=== PATIENT | male | born 1995 | race Caucasian/White ===

== ENCOUNTER 2019-08-30 18:44 | Emergency (ER) | payer SELFPAY ==
[2019-08-30 18:45] VITALS: BP 138/75; PULSE 106; RESP 19; TEMP 37.1; O2SAT 99; BMI 19.3
[2019-08-30 19:09] LABS: Absolute Neutrophil Count 5.4 X10^3/uL (2.0-7.7); Basophil# 0.04 X10^3/uL; Basophil% 0.6 % (0-1); Eosinophil# 0.13 X10^3/uL; Eosinophils% 1.8 % (0-5); Hematocrit 47.9 % (40-54); Hemoglobin 16.8 g/dL (13.0-16.5); Lymphocyte % 15.2 % (19-41); Mean Corp Hgb Conc 35.1 g/dL (32-36); Mean Corpuscular Hgb 30.4 pg (27.0-32.0); Mean Corpuscular Volume 86.8 fL (80-94); Mean Platelet Vol. 8.7 fl (6.2-12.0); Monocyte# 0.52 X10^3/uL; Monocyte% 7.2 % (0-10); NRBC Flagged by Analyzer 0 % (0-5); Neutrophil # 5.44 X10^3/uL (2.7-7.7); Neutrophil % 75.1 % (47-70); Platelet Count 313 K/mm3 (150-450); RBC Distribution Width CV 11.8 % (11.6-14.6); RBC Distribution Width SD 37.4 fl (35.1-43.9); Red Blood Count 5.52 M/mm3 (4.6-6.2); White Blood Count 7.2 K/mm3 (4.4-11.0)
--- NOTE | 2019-08-30 19:20 | ED.VIS.GEN ---
History of Present Illness Chief Complaint: Nausea/Vomiting Informant: Patient Onset: Yesterday Current Severity: Mild Maximum Severity: Moderate Narrative: Patient developed nausea, vomiting, and diarrhea last evening. He states symptoms seem to be improved today but he has not been able to eat much. When he stands up he blacks out for a second before his vision comes back to normal. He has not had any syncope. He reportedly felt warm last night but did not measure a fever. His abdomen feels queasy but no focal pain. Past Medical History - Allergies and Home Meds Allergies/Adverse Reactions: Allergies No Known Allergies Allergy (Verified 08/30/19 18:46) Primary Care Physician: Veto Mera MD [Primary Care Provider] - Prior records reviewed: Yes Past Medical History: - - Reviewed Surgical History: no surgical history Smoking Status: Current every day smoker Review of Systems General: Reports: Fever, Subjective Eyes: Denies: Visual changes - bilaterally ENT: Denies: Bilateral ear pain Cardiovascular: Denies: Chest pain Respiratory: Denies: Dyspnea, Cough Gastrointestinal: Reports: Nausea, Vomiting, Diarrhea. Denies: Abdominal pain Genitourinary: Denies: Dysuria Musculoskeletal: Denies: Back pain Skin: Denies: Rash Neurological: Denies: Headache Hematologic: Denies: Easy bruising Allergy: Denies: Uticaria Physical Exam Vital Signs/Narrative: Vital Signs Temp Pulse Resp BP Pulse Ox 08/30/19 18:45 98.7 F 106 H 19 H 138/75 H 99 Inital Vital Signs reviewed: Yes General: Well nourished, Well developed Head: Normocephalic ENT: Moist mucous membranes Neck: Supple Cardiovascular: Regular rate, Regular rhythm Respiratory: No distress, CTA bilaterally Abdomen: Soft, Nontender, Hypoactive bowel sounds Extremities: Nontender Skin: Normal color, No rash Neurological: Alert, Oriented x3 Psychological: Normal affect Diagnostic/Tx/Re-eval Laboratory Results 08/30/19 08/30/19 08/30/19 18:58 18:58 20:25 WBC 7.2 RBC 5.52 Hgb 16.8 H Hct 47.9 MCV 86.8 MCH 30.4 MCHC 35.1 RDW Std Deviation 37.4 RDW Coeff of Lizzie 11.8 Plt Count 313 MPV 8.7 Immature Gran % (Auto) 0.100 Neut % (Auto) 75.1 H Lymph % (Auto) 15.2 L [place] % (Auto) 7.2 Eos % (Auto) 1.8 Baso % (Auto) 0.6 Absolute Neuts (auto) 5.4 Absolute Lymphs (auto) 1.10 Nucleated RBC % 0 Sodium 139 Potassium 4.0 Chloride 105 Carbon Dioxide 28.0 Anion Gap 6 BUN 11 Creatinine 0.79 Estim Creat Clear Calc 133.64 Est GFR (MDRD) Af Amer 152 Est GFR (MDRD) Non-Af 125 BUN/Creatinine Ratio 13.9 Glucose 108 H Calcium 8.9 Urine Color Yellow Urine Clarity Sl Cldy Urine pH 7.0 Ur Specific [place] 1.010 Urine Protein Negative Urine Glucose (UA) Normal Urine Ketones Negative Urine Occult Blood Negative Urine Nitrite Negative Urine Bilirubin Negative Urine Urobilinogen Normal Ur Leukocyte Esterase Negative Urine RBC 0 SEEN Urine WBC 0 SEEN Ur Squamous Epith Cells 0-5 SEEN Urine Bacteria 0 SEEN Urine Mucus 0 SEEN - Medical Decision Making Patient was given a liter IV fluids and Zofran. On repeat evaluation he feels improved. Will be given Zofran for home. ED Disposition - Plan for ED Patient: Disposition: Home or Assisted Living Diagnosis: Gastroenteritis Instructions: VOMITING AND DIARRHEA, Nonspecific (Adult) Prescriptions: Ondansetron [Zofran Odt] 4 mg PO Q8H PRN PRN #10 tablet PRN Reason: Nausea Referrals: Veto Mera MD [Primary Care Provider] - 3-5 Days if not improving
[2019-08-30 19:24] LABS: Anion Gap 6 (5-15); BUN 11 mg/dL (7-18); BUN/Creat Ratio 13.9 RATIO (10-20); Calcium,Total 8.9 mg/dL (8.5-10.1); Chloride 105 mmol/L (98-107); Creatinine, Serum 0.79 mg/dL (0.70-1.30); EST Glomerular Filtration Rate 125 mL/min (>60); Est Glom Filt Rate - Afr Amer 152 mL/min (>60); Estimated Creatinine Clearance 133.64 ml/min; Glucose 108 mg/dL (74-106); Sodium Level 139 mmol/L (136-145)
[2019-08-30] MEDS: Ondansetron 4 MG/2 ML Vial IV (19:35)
[2019-08-30] MEDS: 0.9% Normal Saline 1,000 ML 1000 ML IV (19:35)
[2019-08-30 20:29] LABS: Bacteria 0 SEEN /hpf (None Seen); Mucous, Urine 0 SEEN /hpf (<or=2+); Red Blood Cells-Urine 0 SEEN /hpf (0-5); White Blood Cells 0 SEEN /hpf (0-5)
[2019-08-30 20:47] LABS: Color, Urine Yellow (Yellow); Glucose, Dipstick Normal (Normal); Ketone-Dipstick Negative (Negative); Leukocyte Esterase-Dipstick Negative /ul (Negative); Nitrite-Dipstick Negative (Negative); Occult Blood-Urine Negative /ul (Negative); Protein-Dipstick Negative (Negative); Urine Bilirubin Dipstick Negative (Negative); Urine Clarity Sl Cldy (Clear); Urine Urobilinogen Normal (Normal)
[2019-08-30 20:48] VITALS: RESP 17
[2019-08-30 20:53] LABS: Squamous Epithelial Cells - UA 0-5 SEEN /hpf (0-5)
[2019-08-30 21:26] VITALS: BP 106/78; PULSE 84; RESP 17; O2SAT 98
== END 2019-08-30 21:27 | disposition home or self-care (01) ==
PROVIDERS: Emergency Provider Emergency Medicine; Family Provider Internal Medicine; PCP Internal Medicine
DX: K52.9 Noninfective gastroenteritis and colitis, unspecified (principal); F17.200 Nicotine dependence, unspecified, uncomplicated
CPT/HCPCS: 80048; 81001; 85025; 96361; 96374; 99284; J7030; A4216; J2405

== ENCOUNTER 2022-09-11 15:39 | Emergency (ER) | payer SELFPAY ==
[2022-09-11 15:40] VITALS: BP 139/93; PULSE 74; RESP 18; TEMP 36.4; O2SAT 98; BMI 20.7
--- NOTE | 2022-09-11 15:57 | EDS_ITS ---
HPI History of Present Illness Chief Complaint: Male Pain/Injury Informant: patient Narrative Narrative: Asymptomatic patient had intercourse with a female who subsequently tested positive for chlamydia. He has no discharge, testicular pain or swelling, abdominal discomfort, dysuria, fevers or chills. No known history of STIs in himself. PFSH PFSH Medical History no medical history no medical history Home Medications ondansetron 4 mg disintegrating tablet 4 mg PO Q8H PRN PRN Nausea #10 tabs 08/30/19 [Rx Last Taken Unknown] Allergy/AdvReac Type Severity Reaction Status Date / Time No Known Allergies Allergy Verified 09/11/22 15:42 Surgical History no surgical history no surgical history Social History Smoking Status: Current every day smoker ROS ROS ED Constitutional Constitutional ED: Denies chills or fever(s) Eyes Eyes: Denies change in vision or diplopia ENT ENT ED: Denies rhinorrhea or sore throat Cardiovascular Cardiovascular: Denies chest pain or palpitations Respiratory/Chest Respiratory/Chest: Denies cough or dyspnea Gastrointestinal Gastrointestinal: Denies abdominal pain, diarrhea, nausea or vomiting Genitourinary Genitourinary ED: Denies dysuria or hematuria Musculoskeletal Musculoskeletal: Denies back pain or neck pain Integumentary Denies abscess or rash Neurologic Neurologic: Denies headache(s), paresthesias or weakness Psychiatric Psychiatric: Denies anxiety or suicidal thoughts EXAM Physical Exam Const Vital Signs: 09/11/22 15:40 Temperature 97.5 F L Temperature Source Oral Pulse Rate 74 Respiratory Rate 18 Blood Pressure 139/93 H Blood Pressure Mean 108 Pulse Ox 98 Oxygen Delivery Method Room Air Positive well nourished and well developed General Appearance ED: well developed and NAD HEENT Reports moist mucous membranes normocephalic and atraumatic Eyes PERRL and EOMs intact bilaterally Neck full ROM and supple Resp normal respiratory effort Extremity normal to inspection General Extremety ED: Negative for edema General Extremity: Negative for edema Neuro oriented x3, CN's II-XII intact bilaterally and no sensory deficits noted Sensorium / Orientation: awake and alert Motor Exam: strength 5/5 throughout MDM MDM MDM Narrative Medical decision making narrative: Patient was given azithromycin 1 g, we sent urine for GC and chlamydia and he was given appropriate discharge instructions. I offered treatment empirically for gonorrhea, he declines that and understands that if he test positive he may need to return for an injection. Discharge Plan Triage Chief Complaint: Male Pain/Injury ED Provider: Thomas Blakely Dx/Rx/DC Orders Clinical Impression: Exposure to chlamydia Instructions: STI, Chlamydia Prescriptions: No Action ondansetron 4 MG tablet 4 mg PO Q8H PRN PRN (Reason: Nausea) Qty: 10 0RF Primary Care Provider: Veto Mera Referrals: Veto Mera MD [Primary Care Provider] - As Needed Activity Restrictions/Additional Instructions: Your gonorrhea and Chlamydia testing will take a couple days to come back you should get a notification if one of them is positive but not necessarily if one of them is negative. You were treated for chlamydia but not gonorrhea. Follow- up with your doctor if you want to be tested for more STIs such as HIV or syphilis. We do not do asymptomatic screening in the emergency room except in certain clinical situations such as rape. Disposition Disposition: Home, Self Care
[2022-09-11] MEDS: Azithromycin 250 MG Tablet 1000 MG PO (16:05)
[2022-09-11 18:11] LABS: Chlamydia Trachomatis by PCR Negative (Negative); Neisserai gonorrhoeae by PCR Negative (Negative); Probe Check PASS; Sample Adequacy Control PASS; Specimen Processing Control PASS
== END 2022-09-11 16:07 | disposition home or self-care (01) ==
PROVIDERS: Emergency Provider Emergency Medicine; PCP Internal Medicine; Visit Provider Emergency Medicine
DX: Z20.2 Contact with and (suspected) exposure to infections with a predominantly sexual mode of transmission (principal); F17.200 Nicotine dependence, unspecified, uncomplicated
CPT/HCPCS: 87491; 87591; 99283

== ENCOUNTER 2023-10-09 20:33 | Emergency (ER) | payer SELFPAY ==
[2023-10-09 20:34] VITALS: BP 131/63; PULSE 75; RESP 16; TEMP 36.6; O2SAT 100; BMI 20.2
--- NOTE | 2023-10-09 20:53 | EKG12_ITS ---
Test Reason : Blood Pressure : / mmHG Vent. Rate : 067 BPM Atrial Rate : 067 BPM P-R Int : 148 ms QRS Dur : 098 ms QT Int : 358 ms P-R-T Axes : 080 072 065 degrees QTc Int : 378 ms Normal sinus rhythm with sinus arrhythmia Normal ECG Confirmed by BATSHEVA HAGAN, ERMELINDA ([id number]), newspaper or periodical editor VALERIE MELVIN ([id number]) on 10/13/2023 11:20:22 A M Referred By: Confirmed By:GEORGIA HERMAN MD
--- NOTE | 2023-10-09 20:54 | EDS_ITS ---
HPI History of Present Illness Chief Complaint: Chest Other Informant: patient Narrative Narrative: Patient presents with epigastric and lower chest pain. Patient states that over the last couple days every time he eats or drinks thumb thing he gets a discomfort in his lower chest and epigastric area. It is a little bit burning. He also feels like it is just hurts to swallow. If he does not swallow food or drink he is okay. He does not have pain at any other time with exertion or activity. He does note that when he gets up in the morning which it ends up being about 330 or 4 in the morning because of his job, he has the discomfort even with not eating. When he is up moving around it goes away. He denies a history of GERD. He also denies any family or personal history of heart disease or PE. No recent travel surgery immobilization. He is a smoker but he has no diabetes blood pressure high cholesterol. He has had no trauma recently. PFSH PFSH Medical History no medical history Home Medications ondansetron 4 mg disintegrating tablet 4 mg PO Q8H PRN PRN Nausea #10 tabs 08/30/19 [Rx Last Taken Unknown] omeprazole 20 mg capsule,delayed release 20 mg PO DAILY #30 CAPSULES 10/09/23 [Rx Last Taken Unknown] Allergy/AdvReac Type Severity Reaction Status Date / Time No Known Allergies Allergy Verified 10/09/23 20:34 Social History Smoking Status: Current every day smoker tobacco type: cigarettes ROS ROS ED ROS Narrative A complete review of systems was performed and is negative except as documented in the history of present illness. Some specific details below. Constitutional: No recent fevers or chills. No malaise. No myalgias EYE: No color change ENT: See history of present illness. His throat is not sore though. Occasionally he does get a sour acid taste in his throat but not all the time. CV: See history of present illness. Respiratory: No cough or dyspnea at any time. GI: No abdominal pain. No nausea vomiting. He states his stools been a little softer recently but no black or blood. : No frequency dysuria or hematuria. Musculoskeletal: No recent trauma. No pains. No swelling. Skin: No rash. Nondiaphoretic. Neuro: No weakness or numbness. Endocrine: No polyuria or polydipsia. EXAM Physical Exam Narrative Exam Narrative: CONSTITUTIONAL: Patient is nontoxic in appearance. The patient looks comfortable. Work of breathing looks normal. HEENT: No notable trauma. Mucous membranes moist. No sinus tenderness. No indication of pain with swallowing. No exudate. No enlarged tonsils. No erythema. No mass. Voice is normal. EYES: No conjunctival injection. No proptosis. NECK:No JVD. No stridor. CARDIOVASCULAR: Regular rate. Regular rhythm. No notable murmur. No JVD. RESPIRATORY: No respiratory distress. Breathing is unlabored. No wheezes. No rhonchi. No rales. No pain with a deep breath. No chest wall tenderness. He does have some mild pectus excavatum. GASTROINTESTINAL: Not distended. Bowel sounds are normal. No tenderness. No guarding. No rebound. No palpable mass. No bruit is heard. GENITOURINARY: No tenderness over the bladder. No CVA tenderness. MUSCULOSKELETAL: Atraumatic. No peripheral edema. No cord. No tenderness along the deep venous system. No asymmetry. No distended veins. NEUROLOGICAL: Patient is alert and appropriate. SKIN: No noted rashes. No diaphoresis. No pallor. PSYCHIATRIC: Patient is calm. Mood is appropriate. Const Vital Signs: 10/09/23 20:34 10/09/23 20:49 Temperature 97.8 F Temperature Source Temporal Pulse Rate 75 Respiratory Rate 16 Respiratory Effort Normal Blood Pressure 131/63 H Blood Pressure Mean 85 Pulse Ox 100 MDM MDM MDM Narrative Medical decision making narrative: My independent interpretation of the patient's two-view chest x-ray shows no acute process. He does have mild pectus excavatum which is notable on exam. But no infiltrate. No cardiomegaly. Mediastinum looks normal. No sign of pneumothorax. Final reading is pending. Talked with the patient again. I think his symptoms and exam and overall risk factor profile fit with GERD is the most likely cause of his symptoms. I will get him on a PPI. I see no indication that this is due to coronary artery disease. I do not think further blood work or CT scan imaging would be appropriate. EKG Initial EKG: Comments: My independent interpretation of the patient's EKG shows a sinus rhythm with slight sinus arrhythmia. No ventricular ectopy. No acute ST elevation or depression. FL interval, QRS duration and QTc are all normal. Discharge Plan Triage Chief Complaint: Chest Other ED Provider: Marcellus Ritter Dx/Rx/DC Orders Clinical Impression: Chest pain due to GERD, Pectus excavatum Instructions: ED GERD (Adult) Prescriptions: New omeprazole [omeprazole] 20 mg capsule,delayed release(DR/EC) 20 mg PO DAILY Qty: 30 0RF No Action ondansetron 4 MG tablet 4 mg PO Q8H PRN PRN (Reason: Nausea) Qty: 10 0RF Primary Care Provider: Care Physician,No Primary Referrals: Veto Mera MD [Med Staff - [employer] Maintainer] - 10-14 Days if not better Disposition Disposition: Home, Self Care
--- NOTE | 2023-10-09 21:00 | RAD_ITS ---
INDICATION: CP EXAMINATION/TECHNIQUE: X-RAY - XR Chest 2 Views COMPARISON: 04/15/2014 chest radiograph. Findings: Frontal and lateral views of the chest. LUNG PARENCHYMA: No acute focal airspace disease or mass lesion. PLEURA: No pleural effusion. No pneumothorax. HEART/GREAT VESSELS: Cardiomediastinal silhouette is unremarkable. BONES: Osseous structures are unremarkable for age. RAD/Chest PA and Lateral IMPRESSION: Chest with no acute disease. Electronically Signed: Dmitry Dejesus MD at 21:39 EST ,
[2023-10-09] MEDS: Pantoprazole Sodium 40 MG Tablet PO (21:31)
== END 2023-10-09 21:34 | disposition home or self-care (01) ==
PROVIDERS: Emergency Provider Emergency Medicine; Visit Provider Emergency Medicine
DX: K21.9 Gastro-esophageal reflux disease without esophagitis (principal); R07.9 Chest pain, unspecified; Q67.6 Pectus excavatum; F17.210 Nicotine dependence, cigarettes, uncomplicated
CPT/HCPCS: 71046; 93005; 99282

== ENCOUNTER 2023-10-12 21:07 | Emergency (ER) | payer SELFPAY ==
[2023-10-12 21:08] VITALS: BP 138/80; PULSE 85; RESP 16; TEMP 36.4; O2SAT 98; BMI 20.5
--- NOTE | 2023-10-12 21:44 | RAD_ITS ---
STUDY: X-RAY - LEFT ELBOW REASON FOR EXAM: Male, 28 years old. pain TECHNIQUE: 3 view(s) of the elbow. COMPARISON: None. FINDINGS: Normal visualized humerus, radius and ulna. Normal radiocapitellar and ulnotrochlear articulations. The soft tissue structures are unremarkable. RAD/Elbow min 3 Views IMPRESSION: Normal x-ray examination of the elbow. Electronically Signed: Milton Terrazas MD at 22:05 EST ,
--- NOTE | 2023-10-12 23:06 | EX.ED.UPPERE ---
HPI History of Present Illness HPI Narrative: Patient presents with left elbow. And forearm pain that began today. Patient states he was moving some furniture yesterday and woke up with pain in his left elbow and forearm today. Patient describes it as sharp and tightness. Patient states it is worse with extension of his elbow and with making a fist. Patient states it is better with rest. Patient denies any paresthesias or weakness. Patient denies any trauma or direct injury. Patient denies any other injuries. Chief Complaint: Upper Extremity Injury Informant: patient Onset/Context/Timing Onset: Today Context: Sudden Onset Timing: Continuous Quality of Pain: Sharp and - (Tightness) Location: Left elbow and forearm Worsened by: Extension of elbow and making a fist Relieved by: Rest Associated Symptoms Associated Symptoms: Negative for Parasthesia, Weakness or Loss of Funtion PFSH PFSH no medical history Home Medications NK 10/12/23 [History Last Taken Unknown] Allergy/AdvReac Type Severity Reaction Status Date / Time No Known Allergies Allergy Verified 10/09/23 20:34 no surgical history Social History Smoking Status: Current every day smoker tobacco type: cigarettes ROS ROS ED Constitutional Constitutional ED: Denies chills or fever(s) Eyes Eyes: Denies blurry vision or change in vision ENT ENT ED: Denies rhinorrhea or sore throat Cardiovascular Cardiovascular: Denies chest pain or palpitations Respiratory/Chest Respiratory/Chest: Denies cough or dyspnea Gastrointestinal Gastrointestinal: Denies nausea or vomiting Genitourinary Genitourinary ED: Denies dysuria or hematuria Musculoskeletal Musculoskeletal: Denies back pain or neck pain Integumentary Denies abscess or rash Neurologic Neurologic: Denies headache(s) or weakness Allergic/Immunologic Allergic/Immunologic ED: Denies mouth swelling or urticaria EXAM Physical Exam Const Vital Signs: 10/12/23 21:08 Temperature 97.6 F L Temperature Source Temporal Pulse Rate 85 Respiratory Rate 16 Blood Pressure 138/80 H Blood Pressure Mean 99 Pulse Ox 98 Oxygen Delivery Method Room Air Positive well nourished and well developed General Appearance ED: well developed and NAD HEENT Reports moist mucous membranes Neck full ROM and supple Extremity Extremity Narrative: There is tenderness to palpation over the medial and posterior aspects of the left elbow and left forearm. There is some mild edema. There is no ecchymosis. There is no bony crepitance or step-off. There is tenderness over the medial epicondyle of the left elbow. Range of motion was slightly limited in flexion and extension of the elbow secondary to pain. Radial pulses are equal bilaterally. Strength is 5/5 in the radial, median, and ulnar areas. Sensation was intact to light touch in the radial, median, and ulnar areas. Neuro oriented x3, CN's II-XII intact bilaterally, moves all extremities, no focal motor deficits and no sensory deficits noted Sensorium / Orientation: alert Motor Exam: strength 5/5 throughout MDM MDM MDM Narrative Medical decision making narrative: Differential diagnosis includes fracture, contusion, and muscle strain. X-rays of the left elbow will be obtained to assess for fracture and effusion. Radiography Diagnostic Testing: Clinical Impression(s) from Imaging Studies Elbow X-Ray 10/12/23 21:44 IMPRESSION: Normal x-ray examination of the elbow. Electronically Signed: Milton Terrazas MD at 22:05 [facility] , X-rays of the left elbow were obtained. There are 3 views. On my independent interpretation, there is no acute fracture noted. There is no joint effusion noted. There is no dislocation noted. Radiologist also interpreted the x-rays and agrees. Treatment and Re-Evaluation Narrative: Patient was advised of his findings. Patient was instructed to ice and elevate the left elbow. Patient was given a prescription for Naprosyn. Patient was instructed to follow-up with his primary care physician in 5 to 7 days. Patient was given restrictions for work. Patient understood and was agreeable with the plan. All questions were answered. Discharge Plan Triage Chief Complaint: Upper Extremity Injury ED Provider: Mikel Grace Dx/Rx/DC Orders Clinical Impression: Medial epicondylitis of left elbow Instructions: ED Tennis Elbow Prescriptions: No Action NK Stand Alone Forms: Work Status Form Primary Care Provider: Care Physician,No Primary Referrals: Care Physician,No Primary [Primary Care Provider] - Disposition Disposition: Home, Self Care
[2023-10-12] MEDS: Naproxen 500 MG Tablet PO (23:32)
== END 2023-10-12 23:33 | disposition home or self-care (01) ==
LOC: ED 23:23
PROVIDERS: Emergency Provider Emergency Medicine; Referring Provider Emergency Medicine; Visit Provider Emergency Medicine
DX: M77.02 Medial epicondylitis, left elbow (principal); F17.210 Nicotine dependence, cigarettes, uncomplicated
CPT/HCPCS: 73080; 99282

== ENCOUNTER 2023-10-13 20:40 | Emergency (ER) | payer SELFPAY ==
[2023-10-13 20:40] VITALS: PULSE 86; RESP 18; TEMP 36.4; O2SAT 100; BMI 20.2
--- NOTE | 2023-10-13 21:16 | EX.ED.UPPERE ---
HPI History of Present Illness Chief Complaint: Upper Extremity Injury Informant: patient Narrative Narrative: Is here because he needs a note for work. He was seen here yesterday for left elbow pain. He is left-hand dominant. He had been moving a lot of furniture. And now when he tries to pull something his elbow hurts. I reviewed the report from yesterday. I reviewed the x-rays which are negative for fracture. Patient has epicondylitis. He has been primarily medial pain but he does have some lateral. No numbness tingling weakness. He was unable to fill his Naprosyn for the day because of the time that he was seen. PFSH PFS Home Medications naproxen 500 mg tablet 500 mg PO BID PRN #20 tabs 10/12/23 [Rx Last Taken Unknown] Allergy/AdvReac Type Severity Reaction Status Date / Time No Known Allergies Allergy Verified 10/13/23 20:40 Social History Smoking Status: Current every day smoker tobacco type: cigarettes ROS ROS ED Constitutional Constitutional ED: Denies fever(s) Gastrointestinal Gastrointestinal: Denies nausea or vomiting Musculoskeletal Musculoskeletal: Reports other Details: See history of present illness Integumentary Denies abscess, Abrasions or rash Neurologic Neurologic: Denies paresthesias or weakness Hematologic/Lymphatic Hematologic/Lymphatic: Denies easy bleeding or easy bruising Allergic/Immunologic Allergic/Immunologic ED: Denies urticaria EXAM Physical Exam Narrative Exam Narrative: Neuro: Patient awake alert no acute distress. HEENT shows no trauma Cardiorespiratory shows easy unlabored breathing normal pulse and normal saturations under percent on room air showing no hypoxia. Extremities he does have both medial and lateral epicondylar tenderness. When I have him grab with his hand and pull toward him he gets some discomfort. But there is no swelling. There is no erythema. No warmth. He has good range of motion. No distal changes. Distal pulses are intact. Sensation is intact. Const Vital Signs: 10/13/23 20:40 Temperature 97.5 F L Temperature Source Temporal Pulse Rate 86 Respiratory Rate 18 Pulse Ox 100 Oxygen Delivery Method Room Air MDM MDM MDM Narrative Medical decision making narrative: Already had x-rays and meds yesterday. I will write him a note for couple days. We talked about rest ice and letting this heal. Discharge Plan Triage Chief Complaint: Upper Extremity Injury ED Provider: Marcellus Ritter Dx/Rx/DC Orders Clinical Impression: Medial epicondylitis of left elbow Instructions: Understanding Medial Epicondylitis Prescriptions: No Action naproxen 500 mg tablet 500 mg PO BID PRN Qty: 20 0RF Stand Alone Forms: ED Work / School Excuse Primary Care Provider: Care Physician,No Primary Referrals: Care Physician,No Primary [Primary Care Provider] - Activity Restrictions/Additional Instructions: Up as directed prior. Disposition Disposition: Home, Self Care
[2023-10-13 21:48] VITALS: BP 122/74; PULSE 81; RESP 16; O2SAT 97
== END 2023-10-13 21:49 | disposition home or self-care (01) ==
LOC: ED 21:31
PROVIDERS: Emergency Provider Emergency Medicine; Visit Provider Emergency Medicine
DX: M77.02 Medial epicondylitis, left elbow (principal); F17.210 Nicotine dependence, cigarettes, uncomplicated
CPT/HCPCS: 99282

== ENCOUNTER 2023-12-14 15:22 | Emergency (ER) | payer SELFPAY ==
[2023-12-14 15:23] VITALS: BP 104/67; PULSE 86; RESP 18; TEMP 36.5; O2SAT 97
[2023-12-14 15:57] VITALS: BMI 19.3
--- NOTE | 2023-12-14 15:58 | EDS_ITS ---
HPI HPI - Fall History of Present Illness Chief Complaint: Fall PFSH PFS Medical History Smoker Home Medications NK 12/14/23 [History Last Taken Unknown] Allergy/AdvReac Type Severity Reaction Status Date / Time No Known Allergies Allergy Verified 12/14/23 15:23 Social History Smoking Status: Former smoker EXAM Physical Exam Const Vital Signs: 12/14/23 15:23 12/14/23 15:57 Temperature 97.7 F L Temperature Source Temporal Pulse Rate 86 Respiratory Rate 18 Respiratory Effort Normal Respiratory Depth Normal Respiratory Pattern Normal Blood Pressure 104/67 Blood Pressure Mean 79 Pulse Ox 97 Oxygen Delivery Method Room Air Room Air MDM MDM MDM Narrative Medical decision making narrative: HISTORY OF PRESENT ILLNESS: 28-year-old male presents after mechanical fall. States he slipped down approximately 11 stairs. He notes injury to his left shoulder and right ankle/foot. Denies history of surgery to either of these extremities. Denies head trauma or loss of consciousness. NO vomiting or focal deficits. Denies drug or EtOH use in general and specifically today. Denies pain anywhere else. Does note a cough and recent fever but denies any shortness of breath or chest pain REVIEW OF SYSTEMS: Pertinent positives: Left shoulder pain, right ankle pain, right foot pain Pertinent negatives: Head trauma, loss of consciousness, focal weakness PHYSICAL EXAM: Nursing triage notes reviewed, Vital signs reviewed Primary Survey Airway: Intact Breathing: Bilateral breath sounds Circulation: Palpable bilateral femorals, Palpable bilateral radial, Palpable bilateral DP and Palpable bilateral PT Disability / Spine precautions GCS Score: Eye Openin Verbal Response: 5 Motor Response: 6 Secondary Survey Constitutional: Please see MDM Head: Atraumatic, Midface stable, NO jaw malocclusion, No Cephalohematoma, and No Lacerations noted Eye: Pupils equal round and reactive to light, Extraocular muscles intact and No periorbital ecchymosis or stepoff, no evidence of entrapment ENT: Oropharynx clear, no lacerations, no hemotympanum, no raccoon eyes or bonilla sign Cervical spine / Neck: No cervical spine bony tenderness, crepitance, or stepoff deformity Trachea midline Lungs: Clear to auscultation, No asymmetric rise and No crepitus, no flail chest Cardiac: Regular rate and rhythm and No murmurs Abdomen: Soft, Nontender and No rebound Pelvis: Pelvis stable to compression : No evidence of genital injury Back: No midline bony tenderness to thoracic/lumbar/sacral spines Neuro: At baseline, intact strength and sensation in bilateral upper and lower extremities. 2+ patellar reflexes bilaterally. Intact sensation L1-S1 dermatomal distributions. Intact 5/5 strength in hip flexion (T12-L3). Knee extension (L2-L4). Ankle dorsiflexion (L4-L5). Ankle plantar flexion (S1). Great toe extension (L5). 2+ patellar and Achilles DTRs. Intact 5/5 strength with ok sign (median), intact finger abduction (ulnar) intact wrist extension (radial n). Intact sensation in the radial, ulnar, and median nerve distributions. Extremities: NO gross Deformities, TTP over left shoulder, TTP over right foot and ankle. No obvious open fractures. Compartments are soft Psych: Normal affect Nursing triage notes reviewed, Vital signs reviewed MEDICAL DECISION MAKING: Chief Complaint: Ankle pain, shoulder pain External records reviewed: No recent advanced imaging of the involved extremities Factors affecting care: none Social determinants of health: none History obtained from others: none Consults: none [facility] Narrative: Patient was hemodynamically stable, afebrile, nontoxic-appearing. Exam with TTP over left shoulder and right ankle and foot I considered the following differential diagnosis: Left shoulder injury, right ankle injury, obtain images to rule out bony injury. ALL IMAGES (IF OBTAINED) HAVE BEEN PERSONALLY REVIEWED AND INTERPRETED BY MYSELF. X-ray of the right foot, right ankle, left shoulder read reviewed myself. All images show no evidence of obvious bony abnormality. The synthesis of the patient's history, physical exam and images suggest no acute life-threatening etiology. Likely some from her ankle contusion shoulder contusion. Gave RICE instructions. Give child ibuprofen instructions. Discharge patient stable condition The patient and/or family, caregivers express understanding. The patient and/or family, caregivers agrees with the plan. Shared decision making: I will have a discussion with the patient and or visitors regarding risk/benefits of further testing or admission. They will be made aware of of the risk/benefits inherent in this decision they will be given the opportunity to voice understanding. Total critical care time today provided was at least 0 minutes. This excludes separately billable procedures. Critical care time (if documented) is secondary to the patient having high probability of clinically significant/life threatening deterioration in the patient's condition which required my urgent intervention. Impression: 1. Ankle contusion 2. Shoulder contusion Dispo: Discharge home This note was generated with [employer] dictation software. It may contain incorrect words, spelling, and punctuation that were not noted in review of the chart prior to signing. Radiography Diagnostic Testing: Clinical Impression(s) from Imaging Studies Ankle X-Ray 12/14/23 16:00 IMPRESSION: Normal x-ray examination of the ankle. Electronically Signed: Milton Terrazas MD at 16:48 EST Reading Location ID and State: [id number] / Contactual Tel , Service support , Foot X-Ray 12/14/23 16:00 IMPRESSION: Normal x-ray examination of the foot. Electronically Signed: Milton Terrazas MD at 16:47 EST Reading Location ID and State: [id number] / Contactual Tel , Service support , Shoulder X-Ray 12/14/23 16:05 IMPRESSION: Normal x-ray examination of the shoulder. Electronically Signed: Milton Terrazas MD at 16:45 EST Reading Location ID and State: [id number] / Contactual Tel , Service support , Discharge Plan Triage Chief Complaint: Fall ED Provider: Parker Barron Dx/Rx/DC Orders Instructions: Bone Contusion, ED RICE Prescriptions: No Action NK Primary Care Provider: Care Physician,No Primary Referrals: Estrella Dupree MD [Med Staff - [employer]] - Activity Restrictions/Additional Instructions: Thank you for trusting us with your care today! Please take Tylenol (2 pills, 650 mg), ibuprofen (2 pills, 400 mg) every 6 hours as needed for pain and fever control. Please return to the emergency department if your symptoms change or worsen. Please follow with your primary care physician for further outpatient evaluation and management. Disposition Disposition: Home, Self Care
--- NOTE | 2023-12-14 16:00 | RAD_ITS ---
STUDY: X-RAY - RIGHT ANKLE REASON FOR EXAM: Male, 28 years old. pain TECHNIQUE: 3 view(s) of the ankle. COMPARISON: None. FINDINGS: Normal visualized distal tibia and fibula. Normal medial and lateral malleoli. Normal tibiotalar articulation and ankle mortise. Normal visualized talus and calcaneus. The visualized subtalar, talonavicular, calcaneocuboid and tarsal articulations are normal. The soft tissue structures are unremarkable. RAD/Ankle min 3 Views IMPRESSION: Normal x-ray examination of the ankle. Electronically Signed: Milton Terrazas MD at 16:48 EST ,
--- NOTE | 2023-12-14 16:00 | RAD_ITS ---
STUDY: X-RAY - RIGHT FOOT CLINICAL: Male, 28 years old. pain TECHNIQUE: 3 view(s) of the foot. COMPARISON: None. FINDINGS: Normal talus, calcaneus, and tarsal bones. Normal visualized subtalar, talonavicular, calcaneocuboid, tarsal and tarsometatarsal articulations. Normal metatarsi. Normal metatarsophalangeal joint of the great toe. Normal tibial and fibular sesamoid bones. Normal interphalangeal joint of the great toe. Normal phalanges of the great toe. Normal second through fifth metatarsophalangeal joints. Normal interphalangeal joints and phalanges of the lesser toes. The soft tissue structures are unremarkable. RAD/Foot min 3 Views IMPRESSION: Normal x-ray examination of the foot. Electronically Signed: Milton Terrazas MD at 16:47 EST ,
--- NOTE | 2023-12-14 16:05 | RAD_ITS ---
STUDY: X-RAY - LEFT SHOULDER REASON FOR EXAM: Male, 28 years old. shoulder pain TECHNIQUE: 4 view(s) of the shoulder. COMPARISON: None. FINDINGS: Normal glenohumeral articulation. Normal acromioclavicular joint. Normal acromion. Normal humeral head and visualized proximal humerus. The soft tissue structures are unremarkable. Normal visualized pulmonary apex. RAD/Shoulder min 2 Views IMPRESSION: Normal x-ray examination of the shoulder. Electronically Signed: Milton Terrazas MD at 16:45 EST ,
[2023-12-14] MEDS: Ibuprofen 200 MG Tablet 400 MG PO (16:11)
--- OUTSIDE RECORDS SUMMARY | 2023-12-14 16:38 | XMS RPT_ITS | CCD ---
Author Name Unknown Address [address] [place] [address] Organization [facility] Results Test Name Value Interpretation Reference Range Facil ity Summary Purpose Family History No Family History Records Found Advance Directives No Advanced Directives Records Found Additional Source Comments (unrecognized sect ion and content) No Status Records Found INFORMATION SOURCE (unrecogn ized section and content) FOR RECORDS PERTAINING TO PATIENTS WHO ARE OR HAVE BEEN ENROLLED IN A CHEMICAL DEPENDENCY/SUBSTANCEABUSE PROGRAM, SOME INFORMATION MAY BE OMITTED. This clinical summary was aggregated from multiple sources. Caution should be exercised in using it in the provision of clinical care. This summary normalizes information from multiple sources, and as a consequence, information in this document may materially change the coding, format and clinical context of patient data. In addition, data may be omitted in some cases. CLINICAL DECISIONS SHOULD BE BASED ON THE PRIMARY CLINICAL RECORDS. [employer] provides no warranty or guarantee of the accuracy or completeness of information in this document.
[2023-12-14 17:25] VITALS: BP 102/72; PULSE 73; RESP 16; TEMP 36.3; O2SAT 97
== END 2023-12-14 17:26 | disposition home or self-care (01) ==
PROVIDERS: Emergency Provider Emergency Medicine; Visit Provider Emergency Medicine
DX: S90.01XA Contusion of right ankle, initial encounter (principal); R50.9 Fever, unspecified; Z87.891 Personal history of nicotine dependence; S40.012A Contusion of left shoulder, initial encounter; W10.9XXA Fall (on) (from) unspecified stairs and steps, initial encounter
CPT/HCPCS: 73030; 73610; 73630; 99282

== ENCOUNTER 2023-12-15 03:32 | Emergency (ER) | payer MEDICAID, SELFPAY ==
[2023-12-15 03:32] VITALS: BP 107/71; PULSE 91; RESP 19; TEMP 36.7; O2SAT 95
--- NOTE | 2023-12-15 04:14 | ED.VIS.DYS ---
HPI History of Present Illness Chief Complaint: Shortness of Breath Informant: patient Onset/Context/Timing Onset: Today Context: sudden Timing: Continuous Quality: Positive for Orthopnea Worsened by: Lying flat Relieved by: - (Sitting up, cold air) Associated Symptoms cough, fever and sore throat; Negative for rhinorrhea, post nasal drip, chills, sweats, clear sputum, white sputum, yellow sputum or green sputum Chest Pain: Positive for Sharp and Stabbing Narrative Narrative: Patient presents with shortness of breath that became worse tonight. Patient states he has had fever and upper respiratory symptoms for the past 5 days. Patient states that tonight when he laid down he was able to sleep for approximately 1 hour and then woke up with shortness of breath. Patient states he fell after trying to get up from the couch. Patient states his breathing is worse when he lays flat. Patient states it is better with sitting up and going into the cold air. Patient admits to a cough but denies any sputum production. Patient states he had a fever of 102. Patient also admits to a sore throat. Patient admits to some pain in his chest with coughing. PFSH PFSH Medical History Smoker Home Medications oseltamivir 75 mg capsule 75 mg PO BID #10 CAPSULES 12/15/23 [Rx Last Taken Unknown] Allergy/AdvReac Type Severity Reaction Status Date / Time No Known Allergies Allergy Verified 12/15/23 03:33 Surgical History no surgical history no surgical history Social History Smoking Status: Former smoker ROS ROS ED Constitutional Constitutional ED: Reports fever(s); Denies chills Eyes Eyes: Reports change in vision; Denies blurry vision ENT ENT ED: Reports sore throat; Denies rhinorrhea Cardiovascular Cardiovascular: Reports chest pain; Denies palpitations Respiratory/Chest Respiratory/Chest: Reports cough and dyspnea Gastrointestinal Gastrointestinal: Denies nausea or vomiting Genitourinary Genitourinary ED: Denies dysuria or hematuria Musculoskeletal Musculoskeletal: Reports back pain; Denies neck pain Integumentary Denies abscess or rash Neurologic Neurologic: Reports headache(s); Denies weakness Allergic/Immunologic Allergic/Immunologic ED: Denies mouth swelling or urticaria EXAM Physical Exam Const Vital Signs: 12/15/23 03:32 12/15/23 03:32 12/15/23 04:29 Temperature 98.1 F Temperature Source Temporal Pulse Rate 91 99 Respiratory Rate 19 H 18 Respiratory Depth Normal Respiratory Pattern Normal Blood Pressure 107/71 Blood Pressure Mean 83 Pulse Ox 95 Oxygen Delivery Method Room Air Room Air Positive well nourished and well developed General Appearance ED: well developed and NAD HEENT Reports moist mucous membranes Neck supple and no JVD Resp normal respiratory effort Auscultation: rhonchi throughout Cardio regular rate and regular rhythm GI non-tender and non-distended Palpation: soft Neuro oriented x3, CN's II-XII intact bilaterally and no sensory deficits noted Shamar Coma Scale: document GCS findings Spontaneous Obeys Commands Oriented 15 Sensorium / Orientation: alert Speech: speech normal Motor Exam: strength 5/5 throughout Psych mental status grossly normal Skin no wounds and skin turgor normal MDM MDM MDM Narrative Medical decision making narrative: Differential diagnosis includes pneumonia, bronchitis, viral infection, and upper respiratory infection chest x-ray will be obtained to assess for pneumonia and pneumothorax. COVID-19, influenza, and RSV PCR will be obtained to assess for viral infection. Lab Data Lab results narrative: COVID-19 PCR was reviewed and was negative. Influenza PCR was reviewed and was positive for influenza A but negative for influenza B. RSV PCR was reviewed and was negative. Radiography Chest X-Ray - ED: 2 View, Read by ED Physician, Read by Radiologist and - (Patchy bilateral airspace disease) Diagnostic Testing: Clinical Impression(s) from Imaging Studies Chest X-Ray 12/15/23 04:21 IMPRESSION: Patchy bilateral airspace disease. Findings may indicate pneumonia. Follow-up is recommended to ensure resolution. Electronically Signed: Kelton Whyte MD at 4:54 EST , PA and lateral chest x-rays obtained. There are 2 views. On my independent interpretation, there is bilateral airspace disease which may indicate pneumonia. There is no cardiomegaly. Bony thorax is normal. Radiologist also interpreted the x-rays and agrees. Treatment and Re-Evaluation :: Patient was given a DuoNeb aerosol here. Patient was advised of his findings. Patient was given his first dose of Tamiflu here. Patient is given a prescription for Tamiflu. Patient was instructed to follow-up with his primary care physician in 5 to 7 days. Patient understood and was agreeable with the plan. All questions were answered. Discharge Plan Triage Chief Complaint: Shortness of Breath ED Provider: Mikel Grace Dx/Rx/DC Orders Clinical Impression: Influenza A, Pneumonia Instructions: ED Influenza (Adult), ED Pneumonia (Adult) Prescriptions: New oseltamivir [oseltamivir] 75 mg capsule 75 mg PO BID Qty: 10 0RF Primary Care Provider: Care Physician,No Primary Referrals: Care Physician,No Primary [Primary Care Provider] - Disposition Disposition: Home, Self Care
--- NOTE | 2023-12-15 04:21 | RAD_ITS ---
EXAM: XR CHEST, 2 VIEWS CLINICAL INDICATION: Cough TECHNIQUE: Frontal and lateral views of the chest. COMPARISON: 2 view chest 10/09/2023 FINDINGS: LUNGS AND PLEURAL SPACES: Patchy bilateral airspace disease. No pneumothorax. No effusion. HEART: Unremarkable. Cardiac silhouette not enlarged. MEDIASTINUM: Central airways and mediastinal contour are unremarkable. BONES/JOINTS: Unremarkable. No acute fracture. SOFT TISSUES: Unremarkable. RAD/Chest PA and Lateral IMPRESSION: Patchy bilateral airspace disease. Findings may indicate pneumonia. Follow-up is recommended to ensure resolution. Electronically Signed: Kelton Whyte MD at 4:54 EST ,
[2023-12-15] MEDS: Ipratropium/Albuterol Sulfate 3 ML AMPUL.NEB INHALATION (04:28)
[2023-12-15 04:29] VITALS: PULSE 99; RESP 18
--- OUTSIDE RECORDS SUMMARY | 2023-12-15 05:18 | XMS RPT_ITS | CCD ---
Author Name Unknown Address [address] [place] [address] Organization [facility] Results Test Name Value Interpretation [...] BE BASED ON THE PRIMARY CLINICAL RECORDS. [employer] provides no warranty or guarantee of the accuracy or completeness of information in this document.
[2023-12-15] MEDS: Oseltamivir Phosphate 75 MG Capsule PO (05:50)
[2023-12-15 05:54] VITALS: BP 123/79; PULSE 93; RESP 19; TEMP 36.6; O2SAT 99
== END 2023-12-15 05:55 | disposition home or self-care (01) ==
PROVIDERS: Emergency Provider Emergency Medicine; Visit Provider Emergency Medicine
DX: J10.00 Influenza due to other identified influenza virus with unspecified type of pneumonia (principal); R06.01 Orthopnea; Z87.891 Personal history of nicotine dependence; J02.9 Acute pharyngitis, unspecified; R07.9 Chest pain, unspecified; R51.9 Headache, unspecified
CPT/HCPCS: 71046; 87631; 94640; 99282

== ENCOUNTER 2025-02-16 22:13 | Emergency (ER) | payer SELFPAY ==
--- NOTE | 2025-02-16 23:00 | RAD_ITS ---
EXAM: Left ribs with chest CLINICAL HISTORY: Chest pain COMPARISON: None TECHNIQUE: PA view of the chest and four views left ribs FINDINGS: Acute nondisplaced fractures of the anterolateral left 8th and 9th ribs. Heart and mediastinum are normal. No opacity within the lungs to suggest active pulmonary disease. No pneumothorax or hemothorax. RAD/Ribs Uni Min 3V w/PA Chest IMPRESSION: Acute fractures of the anterolateral left 8th and 9th ribs. No pneumothorax or hemothorax. Reading Location: [id number]
--- NOTE | 2025-02-17 01:24 | ED.VIS.FALL ---
HPI HPI - Fall History of Present Illness Informant: patient Narrative Narrative: 29-year-old male presenting to the emergency room with left mid rib pain. Patient states about 2 days ago he was carrying some boards when he fell landing on the boards on his left side. Since that time he has had pain over the left mid axillary mid ribs is worse with movement and cough. He denies any hemoptysis. No significant dyspnea. He denies any other injuries. PFSH PFSH Medical History Smoker Home Medications ?Medication ?Instructions ?Recorded ?Last Taken ?Type oseltamivir 75 mg capsule 75 mg PO BID #10 CAPSULES 12/15/23 Unknown Rx Allergy/AdvReac Type Severity Reaction Status Date / Time No Known Allergies Allergy Verified 12/15/23 03:33 Social History Smoking Status: Former smoker ROS ROS ED Constitutional Constitutional ED: Denies chills, fever(s) or weight loss Eyes Eyes: Denies change in vision or diplopia ENT ENT ED: Denies ear pain, rhinorrhea or sore throat Cardiovascular Cardiovascular: Reports chest pain; Denies orthopnea, palpitations or racing heartbeat Respiratory/Chest Respiratory/Chest: Denies cough, dyspnea or orthopnea Gastrointestinal Gastrointestinal: Denies abdominal pain, diarrhea, nausea or vomiting Genitourinary Genitourinary ED: Denies dysuria, hematuria or urinary frequency Musculoskeletal Musculoskeletal: Denies arthralgias or myalgias Integumentary Denies abscess or rash Neurologic Neurologic: Denies headache(s) or weakness Psychiatric Psychiatric: Denies anxiety, depression, suicidal ideation or suicidal thoughts Endocrine Endocrinology: Denies polydipsia, polyphagia or polyuria Allergic/Immunologic Allergic/Immunologic ED: Denies mouth swelling, tongue swelling or urticaria EXAM Physical Exam Const Positive well nourished and well developed General Appearance ED: well developed HEENT Reports normocephalic, head/scalp atraumatic and moist mucous membranes Eyes PERRL and EOMs intact bilaterally Neck no lymphadenopathy, supple and no JVD Chest Wall Chest Narrative: Very focal tenderness to palpation in the mid axillary to anterior ribs along ribs 7 06/04/2010. There is a slight pop with deep inhalation noted in this area. I do not appreciate any subcutaneous emphysema. Resp normal respiratory effort and clear to auscultation bilaterally Resp Narrative: Lung sounds are clear and equal. Cardio regular rate, regular rhythm and no murmurs GI normal to inspection, nondistended, normoactive bowel sounds and non-tender Palpation: soft Back/Spine no CVA tenderness and normal ROM Extremity normal to inspection General Extremety ED: Negative for edema General Extremity: Negative for edema Neuro oriented x3 and CN's II-XII intact bilaterally Sensorium / Orientation: alert Motor Exam: strength 5/5 throughout Psych mental status grossly normal Mood & Affect: Negative for depressed or tearful Skin no rashes or lesions noted and no wounds MDM MDM MDM Narrative Medical decision making narrative: Differential diagnosis includes but not limited to pneumothorax hemothorax pulmonary contusion rib fracture rib contusion muscular contusion My independent interpretation of the rib series on the left with PA chest is acute fractures of the 8th and 9th ribs. Radiology does concur. This is consistent with the location of his pain and with his story. I will write for the patient have pain medication at home. We talked about home treatment. He is to expect pain over the next several weeks as these continue to heal. He notes understanding of the plan follow-up if needed return if worsening or concerns History & Record Review Discussion w/independent historian: Patient Additional record(s) reviewed:: Prior outpatient record and Prior ED visit Discharge Plan Triage ED Provider: Kip Mcghee Dx/Rx/DC Orders Prescriptions: No Action oseltamivir [oseltamivir] 75 mg capsule 75 mg PO BID Qty: 10 0RF Primary Care Provider: Care Physician,No Primary Referrals: Care Physician,No Primary [Primary Care Provider] - Print Language: Hebrew
== END 2025-02-17 00:45 | disposition home or self-care (01) ==
PROVIDERS: Emergency Provider Emergency Medicine; Visit Provider Emergency Medicine
DX: S22.42XA Multiple fractures of ribs, left side, initial encounter for closed fracture (principal); W18.39XA Other fall on same level, initial encounter; Z87.891 Personal history of nicotine dependence
CPT/HCPCS: 71101; 99283

== ENCOUNTER 2025-08-15 21:18 | Emergency (ER) | payer SELFPAY ==
[2025-08-15 21:19] VITALS: BP 124/87; PULSE 83; RESP 16; TEMP 36.8; O2SAT 98; BMI 19.5
[2025-08-15] MEDS: Ketorolac 30 MG/ML Syringe IV (23:07)
[2025-08-15] MEDS: DiphenhydrAMINE 50 MG/ML Syringe 25 MG IV (23:08)
[2025-08-15] MEDS: 0.9% Normal Saline (1000mL) 1,000 ML 1000 ML IV (23:09)
[2025-08-15 23:42] VITALS: BP 124/87; PULSE 83; RESP 16; TEMP 36.8; O2SAT 98
== END 2025-08-15 23:42 | disposition home or self-care (01) ==
PROVIDERS: Emergency Provider Emergency Medicine; Visit Provider Emergency Medicine
DX: R51.9 Headache, unspecified (principal); R11.0 Nausea; F17.210 Nicotine dependence, cigarettes, uncomplicated
CPT/HCPCS: 96361; 96374; 96375; 99282; A4216